=== PATIENT | male | born 1985 | race Caucasian/White ===

== ENCOUNTER 2020-09-20 12:22 | Emergency (ER) | payer OTHER ==
[~2020-09-20] VITALS: Ht 182.9 cm; Wt 114.0 kg
== END 2020-09-20 15:33 | disposition home or self-care (01) ==
LOC: ED 12:22
DX: S01.111A Laceration without foreign body of right eyelid and periocular area, initial encounter (principal); S83.92XA Sprain of unspecified site of left knee, initial encounter; S93.402A Sprain of unspecified ligament of left ankle, initial encounter; S30.0XXA Contusion of lower back and pelvis, initial encounter; Z88.0 Allergy status to penicillin; F17.220 Nicotine dependence, chewing tobacco, uncomplicated; V47.5XXA Car driver injured in collision with fixed or stationary object in traffic accident, initial encounter
CPT/HCPCS: 70450; 70486; 71260; 72125; 73590; 73610; 74177; 80053; 81001; 82150; 82550; 83605; 83690; 85025; 86850; 86900; 86901; 99284-25; A9270; J7030; Q9967